=== PATIENT | female | born 1960 | race Caucasian/White ===

== ENCOUNTER 2018-06-04 08:09 | Outpatient (CLI) | payer BC ==
--- NOTE | 2018-06-04 10:14 | ULT ---
THYROID ULTRASOUND: Date: 06-04-18 Provided Clinical History: Thyroid nodule. FINDINGS: Right thyroid lobe measures about 5.1 x 2.2 x 2.6 cm. There is a 3.6 x 2.2 x 1.7 cm isoechoic mass at the inferior pole of the right thyroid lobe. Left thyroid lobe measures about 4.5 x 1.8 x 2 cm. There is a solid oval circumscribed isoechoic mass at the superior pole of the thyroid lobe measuring about 1.1 cm. There is a circumscribed solid oval isoechoic mass seen at the inferior pole of the left thyroid lobe measuring about 1.3 x 1.6 x 2.4 cm . The thyroid gland appears diffusely hypervascular. IMPRESSION: 1. Enlarged hypervascular thyroid gland suggesting thyroiditis. 2. Bilateral thyroid nodules. Provided clinical history indicates prior biopsy. Correlate with prior biopsy results and prior imaging. POS: LING
== END 2018-06-04 08:10 | disposition home or self-care (01) ==
LOC: SCSULT 08:09
PROVIDERS: ATTEND Family Medicine
DX: E07.9 Disorder of thyroid, unspecified (principal); E04.2 Nontoxic multinodular goiter; E04.9 Nontoxic goiter, unspecified
CPT/HCPCS: 76536

== ENCOUNTER 2018-06-29 12:52 | Day surgery (SDC) | payer BC ==
[2018-06-29] MEDS ORDERED: Sodium Bicarbonate 2.5 MEQ/5 ML VIAL ONE (13:02)
[2018-06-29] MEDS ORDERED: Lidocaine 1% PF 5 ML VIAL ONE (13:02)
[2018-06-29 14:16] VITALS: BP 123/75; TEMP 97.5
--- NOTE | 2018-06-29 16:01 | ULT ---
SONOGRAPHIC GUIDED RIGHT THYROID LOBE NODULE FNA: SONOGRAPHIC GUIDED LEFT THYROID LOBE NODULE FNA: HISTORY: Bilateral thyroid masses. FINDINGS: After explaining the procedure and answering all questions, a limited sonographic survey shows multip le nodules throughout each thyroid lobe. The dominant nodule of each lobe was identified and marked for FNA. Sterile technique, buffered local anesthesia, sonographic guidance, and a medial approach were used t o carefully advance a 25 gauge needle into the dominant mass of the right thyroid lobe. Position was confirmed with sonography. FNA aspirate was obtained. A total of four passes were made and submitt ed to pathology for evaluation. Sterile technique, buffered local anesthesia, sonographic guidance, and a medial approach were then u sed to carefully advance a 25 gauge needle into the dominant mass in the left thyroid lobe. Position was confirmed with sonography. A total of four aspirates were made and submitted to pathology for e valuation. Post procedure imaging shows no evidence of complication. The patient tolerated the procedure well a nd was dismissed in good condition. IMPRESSION: Technically successful sonographic guided fine needle aspiration of dominant bilateral thyroid lobe n odules. Pathology is pending. POS: LING
== END 2018-06-29 14:15 | disposition home or self-care (01) ==
LOC: ULT 12:52
PROVIDERS: ATTEND Otolaryngology Plastic Surgery within the Head & Neck
PROC: 0GBH3ZX Excision of Right Thyroid Gland Lobe, Percutaneous Approach, Diagnostic (ICD-10-PCS; principal; 2018-06-29)
PROC: 0GBG3ZX Excision of Left Thyroid Gland Lobe, Percutaneous Approach, Diagnostic (ICD-10-PCS; principal; 2018-06-29)
DX: E04.2 Nontoxic multinodular goiter (principal); K21.9 Gastro-esophageal reflux disease without esophagitis; R42 Dizziness and giddiness; H91.90 Unspecified hearing loss, unspecified ear
CPT/HCPCS: 10022; 76942; 88173; J2001

== ENCOUNTER 2018-08-18 09:09 | Outpatient (CLI) | payer BC | END 2018-08-18 09:10 | disposition home or self-care (01) | LOC: BICMAMMO 09:09 | PROVIDERS: ATTEND Obstetrics & Gynecology | DX: Z12.31 Encounter for screening mammogram for malignant neoplasm of breast (principal); Z80.3 Family history of malignant neoplasm of breast | CPT/HCPCS: 77063; 77067 ==

== ENCOUNTER 2021-10-22 11:04 | Outpatient (CLI) | payer BC | END 2021-10-22 11:05 | disposition home or self-care (01) | LOC: CTENTCT 11:04 | PROVIDERS: ATTEND Otolaryngology Plastic Surgery within the Head & Neck | DX: J32.9 Chronic sinusitis, unspecified (principal) | CPT/HCPCS: 70486 ==

== ENCOUNTER 2021-11-07 13:52 | Outpatient (CLI) | payer BC | END 2021-11-07 13:53 | disposition home or self-care (01) | LOC: ULT 13:52 | PROVIDERS: ATTEND Otolaryngology Plastic Surgery within the Head & Neck | DX: E04.2 Nontoxic multinodular goiter (principal) | CPT/HCPCS: 76536 ==